=== PATIENT | male | born 1980 | race Caucasian/White ===

== ENCOUNTER 2022-11-27 14:18 | Emergency (ER) | payer OTHER, SELFPAY ==
[2022-11-27 14:22] VITALS: BP 127/77; PULSE 71; RESP 18; TEMP 37.2; O2SAT 100
--- NOTE | 2022-11-27 14:31 | ED.GENADUL_ITS ---
Discharge Plan Disposition Patient Disposition: Home Discharge Details Clinical Impression: Acromioclavicular joint separation, type 3 Primary Care Provider: Nasima,Local ED Provider: Gerardo Mota Home Meds and New Rx's Prescriptions: No Action No Known Home Meds Discharge Instructions Additional Instructions: You were diagnosed with a AC joint separation. Believe that you have a grade 3. It would be important that you follow-up with an orthopedist and physical therapy when you get back to [place]. Please use the sling for support for the next few weeks. Apply ice to the affected shoulder 20 minutes every hour while awake. Strongly encouraged that you take some Tylenol and or ibuprofen. Medical Decision Making 42-year-old presents to the emergency room for evaluation of shoulder pain and left-sided rib pain status post fall when biking. Clinically the patient has a left AC joint separation. This confirmed by x-ray. Rib x-rays negative. Results discussed with the patient and his . They will follow-up with an orthopedic surgeon once they get back to [place] and they will also follow-up with some physical therapy. Patient was given documentation about his joint separation and therapy. HPI General Date/Time Provider Initiated Documentation: 11/27/22 14:31 . HPI Narrative: 42-year-old gentleman who was mountain biking and unfortunately fell onto his left shoulder. He says he was wearing full protection full facemask. No head trauma no loss of consciousness. No neck pain. Fell onto the left shoulder. Blum a pop in his conservative deformation of the left shoulder. No paresthesias no focal weakness of the arm. Presents to the emergency room with a sling. He is comfortable. States he does not want any pain medication. No chest trauma no shortness of breath. No abdominal pain no back pain. Related Data Home Medications Medication Instructions Recorded Confirmed Unknown [No Known Home Meds] 11/27/22 11/27/22 Allergies Allergy/AdvReac Type Severity Reaction Status Date / Time No Known Allergies Allergy Unverified 11/27/22 14:30 General Stated Complaint: Orthopedic [id number]: 3 Review of Systems Narrative: 10 point review of system is negative unless otherwise specified in the hpi PFSH All Active Problems (Updated 11/27/22 @ 15:36 by Gerardo Mota MD) Acromioclavicular joint separation, type 3 (Acute) Social History Smoking risk assessment performed?: No Exam Narrative Exam Narrative: General: A,A Ox3, Calm, no apparent distress, well developed, pleasant and leave coordinator perative Head Size/Shape: normocephalic, atraumatic Eyes Pupils: PERRLA Extraocular Mobility: intact and symmetrical Conjunctiva: non-injected, anicteric, no discharge Ears, Nose, Throat Nares: patent bilaterally Oral Cavity: moist Neck: no masses, no crepitus Respiratory Respiratory Effort: no dyspnea Cardiovascular Normal cap refill. Abdomen Inspection and Palpation: soft, non-tender, non-distended, no hepatosplenomegaly Musculoskeletal System Joints, Bones, and Muscles: no deformities other than a deformities with looking the AC joint. Extremities: warm and well-perfused, no cyanosis, capillary refill <2 seconds Skin Skin Inspection: no rash, no lesions, no bruising Neurological Motor: normal tone, normal strength, moving all extremities equally Psychiatric: good insight, good judgement, normal mood and affect Course Vital Signs Vital signs: Vital Signs Temperature 37.2 C 11/27/22 14:22 Pulse 71 11/27/22 14:22 Respiratory Rate 18 11/27/22 14:22 Blood Pressure 127/77 11/27/22 14:22 Pulse Oximetry 100 11/27/22 14:22 Temperature 37.2 C 11/27/22 14:22 Temperature Source Skin 11/27/22 14:22 Pulse 71 11/27/22 14:22 Respiratory Rate 18 11/27/22 14:22 Blood Pressure 127/77 11/27/22 14:22 Blood Pressure Position Sitting 11/27/22 14:22 Pulse Oximetry 100 11/27/22 14:22 Oxygen Delivery Method Room Air 11/27/22 14:22 Oxygen Flow Rate 0 11/27/22 14:22 Pain Level 5 11/27/22 14:22
--- NOTE | 2022-11-27 15:18 | DI.RAD_ITS ---
Exam(s) XR SHOULDER LT COMPLETE 2+V XR RIBS ONLY LT EXAM: XR RIBS ONLY LT CLINICAL HISTORY: Pain. COMPARISON: CR XR SHOULDER LT COMPLETE 2+V from 11/27/2022 FINDINGS: LUNGS: Clear. No pneumothorax is seen. No infiltrate or effusion. HEART: Normal in size. BONES: No displaced rib fracture is seen. No bony destructive lesion is seen. The spine is grossly i ntact. Abnormal widening of the AC joint. The clavicle projects superiorly. Widening of the cortic al clavicular distance, consistent with a acromioclavicular joint separation. Spurring at the unders urface of the acromion. Glenohumeral joint appears intact. IMPRESSION: No evidence of rib fracture. Acromioclavicular joint separation.
== END 2022-11-27 16:12 | disposition home or self-care (01) ==
PROVIDERS: Emergency Provider Emergency Medicine
DX: S43.102A Unspecified dislocation of left acromioclavicular joint, initial encounter (principal); V18.4XXA Pedal cycle driver injured in noncollision transport accident in traffic accident, initial encounter; Y92.482 Bike path as the place of occurrence of the external cause; Y93.55 Activity, bike riding; Y99.9 Unspecified external cause status
CPT/HCPCS: 99283; 71100; 73030